=== PATIENT | female | born 1950 | race Caucasian/White ===

== ENCOUNTER → 2018-09-05 | Outpatient (CLI) | payer MEDICARE, BC ==
[~2018-09-05] MED LIST: ASPIR 8181 MG PO; ATORVASTATIN CA20 MG PO; FENOFIBRATE145 MG PO; FUROSEMIDE40 MG PO; LOSARTAN-HCTZ1 EAC1 PO
--- NOTE | 2018-09-05 14:29 | Diagnostic Imaging Report ---
EXAMINATION: CT scan of the chest with contrast. TECHNIQUE: Spiral CT images of the chest were performed from the lung apices to the level of the adrenal glands without IV or oral contrast material. Coronal and sagittal reformatted images were obtained. Low-dose technique was utilized. COMPARISON: None. CLINICAL HISTORY: Dyspnea with chest pain DISCUSSION: LINES/TUBES: None. LUNGS AND AIRWAYS: Calcified right upper lobe granuloma. Focal right upper lobe groundglass opacity likely scarring (series 3, image 40-52). Minimal left upper lobe scarring. There is also lingular scarring. No pulmonary nodules, masses or consolidation. The airways are normal, without endobronchial lesions. PLEURA: No pneumothorax or pleural effusions. HEART AND MEDIASTINUM: The thyroid gland is normal. The heart and pericardium are within normal limits. Calcification within the aorta. LYMPH NODES: There is no mediastinal, hilar or axillary lymphadenopathy. ABDOMEN: Limited contrast-enhanced views of the upper abdomen show no abnormality within the visualized liver, spleen, pancreas or kidneys. The adrenal glands are normal. BONES AND SOFT TISSUES: No acute bony abnormalities. Mild degenerative spurring of the spine. IMPRESSION: 1. Focal areas of scarring in both lung edge. 2. No pulmonary nodules or masses. 3. No acute thoracic abnormality noted. Signed by: Dr. Refugio Zhu DO on 09/05/2018 2:25 PM
== END ==
LOC: CT 11:47
PROVIDERS: ATTEND Internal Medicine Interventional Cardiology
DX: R06.00 Dyspnea, unspecified (principal); R07.89 Other chest pain; J44.9 Chronic obstructive pulmonary disease, unspecified
CPT/HCPCS: 71250

== ENCOUNTER → 2018-09-06 | Day surgery (SDC) | payer MEDICARE, BC ==
[2018-09-04 15:25] LABS: BASOPHILS # (AUTO) 0.1 (0.0-0.1); BASOPHILS % 1.1 % (0.0-1.0); EOSINOPHILS # (AUTO) 0.2 (0.0-0.4); EOSINOPHILS % 2.7 % (0.0-6.0); HEMATOCRIT 42.2 % (34.2-44.1); HEMOGLOBIN 14.9 g/dL (12.0-16.0); LYMPHOCYTES # (AUTO) 1.4 (1.0-3.2); LYMPHOCYTES % 24.3 % (18.0-39.1); MEAN CORPUSCULAR HEMOGLOBIN 33.3 pg (28-32); MEAN CORPUSCULAR HGB CONC 35.3 g/dL (31-35); MEAN CORPUSCULAR VOLUME 94.2 fL (81-99); MONOCYTES # (AUTO) 0.5 (0.2-0.8); MONOCYTES % 8.5 % (4.4-11.3); NEUTROPHILS # (AUTO) 3.6 (2.1-6.9); NEUTROPHILS % 63.2 % (38.7-80.0); PLATELET COUNT 280 x10e3/uL (140-360); RED BLOOD COUNT 4.48 x10e6/uL (3.6-5.1)
[2018-09-04 15:47] LABS: ALANINE AMINOTRANSFERASE 35 IU/L (0-55); ALBUMIN/GLOBULIN RATIO 1.3 (0.8-2.0); ALKALINE PHOSPHATASE 50 IU/L (40-150); BLOOD UREA NITROGEN 22 mg/dL (7-26); BUN/CREATININE RATIO 24 (6-25); CALCIUM 9.3 mg/dL (8.4-10.2); CARBON DIOXIDE 26 mmol/L (22-29); CHLORIDE 105 mmol/L (98-107); CREATININE, SERUM 0.91 mg/dL (0.57-1.11); EST GLOMERULAR FILTRATION RATE > 60 ML/MIN (60-); GLUCOSE 118 mg/dL (74-118); SODIUM 140 mmol/L (136-145)
[~2018-09-06] VITALS: Ht 161.3 cm; Wt 81.6 kg
[2018-09-06] VITALS (11 sets, daily range): BP systolic 123–167; BP diastolic 66–78
[~2018-09-06] MED LIST changes: +ALPRAZOLAM 0.5 MG TAB ONE; +BENZOCAINE 20% SPR 60 ML CAN ONE; +DIPHENHYDRAMINE HCL 25 MG CAP ONE; +FAMOTIDINE 20 MG/2 ML VIAL IV ONE; +FENTANYL CITRATE/PF 100MCG/2 ML INJ ONE; +HEPARIN SOD/SOD CHLORIDE 2,000 ML ONE; +IOPAMIDOL 370 MG/ML 200 ML INFUS..BTL INJ ONE; +LIDOCAINE HCL 2% LOCAL 20 ML VIAL ONE; +LIDOCAINE HCL 2% LOCAL INJ 5 ML SDV VIAL INJ ONE; +METHYLPREDNISOLONE SOD SUCC 125 MG/2ML VIAL ONE; +MIDAZOLAM HCL 2 MG/2 ML VIAL ONE; +POTASSIUM CHLORIDE 20MEQ/100ML 0 ML ONE; +POTASSIUM CHLORIDE 20MEQ/100ML 100 ML IV ONE; +POTASSIUM CHLORIDE 20MEQ/100ML 100 ML ONE; +PREDNISONE 20 MG TAB PO NR; +PROPOFOL IV EMULSION 10 MG/ML 20 ML VIAL ONE; +SODIUM CHLORIDE 0.9% 1000ML 1,000 ML ONE; +VERAPAMIL HCL 2.5 MG/ML 2 ML VIAL ONE
--- OUTSIDE RECORDS SUMMARY | 2018-09-06 11:35 | XMS REPORT ---
Author [facility] Address Unknown Phone Unavailable Care Team Providers Care Trench Pipe Layer Helper Name Role Phone VISHNU FERNANDES Unavailable Unavailable Payers Payer Name Policy Type Policy Number Effective Date Expiration Date Problems This patient has no known problems. Allergies, Adverse Reactions, Alerts Allergy Name Allergy Type Status Severity Reaction(s) Onset Date Inactive Date Treating Clinician Comments iodine DA Active SV 2012-09-29 00:00:00 Medications This patient has no known medications. Results Test Description Test Time Test Comments Text Results Atomic Results Result Comments CT CHEST WO 2018-09-05 14:15:00 [place] [address] Patient Name: KAYLA VARGAS MR #: [id number] : 1950 Age/Sex: 68/F Req #: [id number] Adm Physician: Ordered by: VISHNU FERNANDES MD Report #: [id number] Location: CT Room/Bed: Procedure: [id number] CT/CT CHEST WO Exam Date: 09/05/18 Exam Time: 1210 REPORT STATUS: Signed EXAMINATION: CT scan of the chest with contrast. TECHNIQUE: Spiral CT images of the chest were performed from the lung apices to the level of the adrenal glands without IV or oral contrast material. Coronal and sagittal reformatted images were obtained. Low-dose technique was utilized. COMPARISON: None. CLINICAL HISTORY: Dyspnea with chest pain DISCUSSION: LINES/TUBES: None. LUNGS AND AIRWAYS: Calcified right upper lobe granuloma. Focal right upper lobe groundglass opacity likely scarring (series 3, image [id number]). Minimal left upper lobe scarring. There is also lingular scarring. No pulmonary nodules, masses or consolidation. The airways are normal, without endobronchial lesions. PLEURA: No pneumothorax or pleural effusions. HEART AND MEDIASTINUM: The thyroid gland is normal. The heart and pericardium are within normal limits. Calcification within the aorta. LYMPH NODES: There is no mediastinal, hilar or axillary lymphadenopathy. ABDOMEN: Limited contrast-enhanced views of the upper abdomen show no abnormality within the visualized liver, spleen, pancreas or kidneys. The adrenal glands are normal. BONES AND SOFT TISSUES: No acute bony abnormalities. Mild degenerative spurring of the spine. IMPRESSION: 1. Focal areas of scarring in both lung edge. 2. No pulmonary nodules or masses. 3. No acute thoracic abnormality noted. Signed by: Dr. Kyle Zhu DO on 09/05/2018 2:25 PM Dictated By: KYLE ZHU DO 1423 Transcribed By: CHRIS on 09/05/18 1429 COPY TO: VISHNU FERNANDES MD
--- OUTSIDE RECORDS SUMMARY | 2018-09-06 11:35 | XMS REPORT | Summary of Care ---
Author Author [facility] Organization [facility] Address Unknown Phone Unavailable Encounter HQ Encntr_alias(FIN) [id number] Date(s): 10/18/15 - 10/18/15 [facility] [address] [place] [address]- [phone] Discharge Disposition: Home Attending Physician: Lukasz Fleming MD Vital Signs No data available for this section Problem List No data available for this section Allergies, Adverse Reactions, Alerts Substance Reaction Severity Status iodinated radiocontrast Active dyes Medications No data available for this section Results No data available for this section Immunizations No data available for this section Procedures No data available for this section Social History No data available for this section Assessment and Plan No data available for this section
--- OUTSIDE RECORDS SUMMARY | 2018-09-06 11:35 | XMS REPORT | Continuity of Care Document ---
Author Author [facility] Address Unknown Phone Unavailable Problems Problem Status Onset Date Classification Date Reported Comments Source R31.9 NO ORAL Active 07/10/2018 [facility] N20.0 Active 07/09/2018 [facility] Backache Resolved Problem 07/17/2018 [facility] Hypertension Resolved Problem 07/17/2018 [facility] Kidney stone Resolved Problem 07/17/2018 [facility] Other female genital prolapse Resolved Problem 07/17/2018 [facility] Edema, unspecified Resolved Problem 07/17/2018 [facility] Calculus of ureter Resolved Problem 07/17/2018 [facility] UTI (<span ID="[id number]">Confirmed</span>) Resolved Problem 07/17/2018 [facility] CALCULUS OF KIDNEY Active [facility] KUB Active [facility] N20.1 Active [facility] HEMATURIA, UNSPECIFIED Active [facility] Medications Medication Details Route Status Patient Instructions Ordering Provider Order Date Source Allergies, Adverse Reactions, Alerts Substance Category Reaction Severity Reaction type Status Date Reported Comments Source iodinated radiocontrast dyes Assertion Drug allergy Active [facility] iodine Assertion Drug allergy Active [facility] Immunizations Immunization Date Given Site Status Last Updated Comments Source Results Order Name Results Value Reference Range Date Interpretation Comments Source Abdomen AP DX Abdomen AP DX KUB: Small calyceal stones in the inferior pole of the left kidney are unchanged compared to the previous KUB on 10/18/2015. There are no other visible urinary tract calculi. The abdominal gas pattern is normal. There are no acute osseous abnormalities. There is no other significant change. REYNALDO DLAWRENCE-EDILIA 07/09/2018 - - Read by: Luis George MD Dictated Date/time: 07/10/18 06:12 Electronically Signed by: Luis George MD 07/10/18 06:13 FINAL REPORT [facility] Abdomen AP DX Abdomen AP DX Patient Name: KAYLA VARGAS : 1950; Age: 65 years y/o Female MR: [id number] Study: Abdomen AP DX dated 10/18/2015 Clinical Indication: n20.0 renal stone; Comparison: 08/24/2015 3 small calcifications in the right pelvis similar to prior study likely phleboliths. One calcification right mid pelvis on prior study not seen on this study. 2 tiny adjacent calculi in the left inferior kidney. Surgical clips seen in the right upper abdomen. Degenerative changes about the lower lumbar spine. Nonpathologic bowel gas pattern without evidence of bowel obstruction. SL: [id number] 10/18/2015 - - Read by: Rakan Buck MD Dictated Date/time: 10/18/15 15:35 Electronically Signed by: Rakan Buck MD 10/18/15 15:37 FINAL REPORT [facility] Abdomen AP DX Abdomen AP DX Clinical Indication: n20.1 ureteral stone; Comparison: 09/28/2005 FINDINGS: Several punctate calculi overlie the kidneys, particularly in the left renal lower pole. The right kidney is difficult to evaluate secondary to density from the overlying colonic stool. Pelvic phleboliths are noted. Large amount of stool distends the rectum. Bowel gas pattern otherwise normal. SL: [id number] 08/24/2015 - - Read by: Adams Montez MD Dictated Date/time: 08/24/15 16:07 Electronically Signed by: Adams Montez MD 08/24/15 16:10 FINAL REPORT [facility] Vital Signs Vital Sign Value Date Comments Source Encounters Location Location Details Encounter Type Encounter Number Reason For Visit Attending Provider ADM Date DC Date Status Source [facility] Outpatient [id number] Rosy Clem 08/24/2015 08/25/2015 [facility] [id number] Rosy Clem 10/18/2015 10/19/2015 [facility] Out[facility] [id number] Rosy Clem 07/09/2018 07/10/2018 [facility] Outpatient [id number] ROSY CLEM 07/10/2018 [facility] Outpatient [id number] Rosy Clem 07/15/2018 07/16/2018 [facility] Outpatient [id number] ROSY CLEM 07/30/2018 [facility] Outpatient [id number] NURSE VISIT 07/30/2018 [facility] Procedures Procedure Code Date Perfomer Comments Source Cystoscopy [id number] 08/23/2011 [facility]
--- OUTSIDE RECORDS SUMMARY | 2018-09-06 11:35 | XMS REPORT | Summary of Care ---
Author Author [facility] Organization [facility] Address Unknown Phone Unavailable Encounter HQ Andres_heron(FIN) [id number] Date(s): 07/09/18 - 07/09/18 [facility] [address] [place] [address]- [phone] Discharge Disposition: Home or Self Care Attending Physician: Lukasz Fleming MD Admitting Physician: Lukasz Fleming MD Vital Signs No data available for this section Problem List Condition Effective Dates Status Health Status Informant Backache(Confirmed) Resolved Hypertension(Confirm Resolved ed) Kidney Resolved stone(Confirmed) Other female genital Resolved prolapse(Confirmed) Edema, Resolved unspecified(Confirme d) Calculus of Resolved ureter(Confirmed) UTI (urinary tract Resolved infection)(Confirmed ) Allergies, Adverse Reactions, Alerts Substance Reaction Severity Status iodinated radiocontrast Active dyes iodine Active Medications No data available for this section Results No data available for this section Immunizations No data available for this section Procedures Procedure Date Related Diagnosis Body Site Status Cystoscopy 08/23/11 Completed Social History Social History Type Response Smoking Status Never smoker; Exposure to Tobacco Smoke None; Cigarette Smoking Last 365 Days No; Reg Smoking Cessation Counseling No entered on: 07/10/18 Assessment and Plan No data available for this section
--- OUTSIDE RECORDS SUMMARY | 2018-09-06 11:35 | XMS REPORT | Summary of Care ---
Author Author [facility] Organization [facility] Address Unknown Phone Unavailable Encounter HQ Angus(FIN) [id number] Date(s): 07/15/18 - 07/15/18 [facility] [address] [place] [address]- Discharge Disposition: Home or Self Care Attending Physician: Lukasz Fleming MD Referring Physician: Lukasz Fleming MD Vital Signs No [...]
--- OUTSIDE RECORDS SUMMARY | 2018-09-06 11:35 | XMS REPORT | Summary of Care ---
Author Author [facility] Organization [facility] Address Unknown Phone Unavailable Encounter HQ Encntr_alias(FIN) [id number] Date(s): 08/24/15 - 08/24/15 [facility] [address] [place] [address]- Discharge Disposition: Home Attending Physician: Lukasz Fleming [...]
--- NOTE | 2018-09-06 14:40 | NUR ---
1440pm Received from [facility] Report from Nabeel RN s/p [facility] and [facility] Rt TR band approach (12cc balloon)Sleepy but easily aroused.Family a bedside. Spoke to Dr Matta regarding. POC Pt able to discharge after 2hrs recovery and 20 meq KCl infused via iv controller over 2hrs. added at 1600 with high alert check with 2 nurses. Left iv site with s/s infiltration , Respiration shallow and regular 94% on room air. Abdomen soft and non tender. Denies necessity to defecate or urinate. Rt tr band site w/o signs of hematoma or or bleeding. POC with DC instructions given to and copies given to family. Family states Dr Matta gave Rx x2 to fill for home pharmacist.Denies CP or SOB No gross signs of pain , pallor,pressure or dysrhythmia. Aware of importance of f/o care in 2wks ds/rn
--- NOTE | 2018-09-06 16:45 | NUR ---
1645p TR Band titration initiated (13cc in balloon) 1645p(-2c )positive 11cc Rt radial pulse present, No gross issues of pain or pallor,or bleeding. 1700p (-3cc)positive 9cc Rt radial pulse present , No gross issues of pain or pallor ,or bleeding. 1715p (-3cc)positive 6cc Rt radial pulse present, NO gross issues of pain or pallor,or bleeding. 1730p (-3cc)positive 3cc Rt radial pulse present, No gross issues of pain or pallor, or bleeding. 1745p (-3cc) Tr band off site w/o hematoma or swelling.No gross issues with pain or pallor positive radial pulse. Aware of care of rt wrist splint in place extra coban given to pt form home splint use wants to reapply later after am shower. ds/rn
--- NOTE | 2018-09-06 18:00 | NUR ---
1800pm Infusion completed. No signs of infiltration to site. Iv removed and Coban dressing applied TR band titration completed. Site stable w/o signs of hematoma or bleeding. Sterile 2x2 with Tegaderm and Coban dressing to Rt Tr band site. Wrist splint in place to Rt Radial pulse strong and present, Assist with dressing and assisted to toilet. Voided qs and escorted to private car per w/c. Family chuck wagon driver present with POC papers aware of importance of f/o care. So gross signs of pain,pallor,pressure or dysrhythmia. ds/rn
--- NOTE | 2018-09-06 22:34 | Operative Report ---
DATE OF PROCEDURE: 09/06/2018 SURGEON: Fermín Matta MD CARDIAC ORANGE PEEL OPERATOR PROCEDURE NOTE INDICATION: Congestive heart failure. PROCEDURES PERFORMED: 1. Left heart catheterization, selective coronary angiography. 2. Balloon flotation right heart catheterization. 3. Deployment of right wrist TR band. COMPLICATIONS: None. RECOMMENDATIONS: Aggressive current treatment for hypertension. DESCRIPTION OF PROCEDURE: Access obtained of the right radial artery using ultrasound guidance. A 5-Urdu sheath was placed. Access obtained of the right brachial vein using ultrasound guidance. A 7-Urdu sheath was placed. This is balloon flotation [place] catheterization, please see accompanying report, was normal. Pulmonary capillary wedge pressure was 13, mean pulmonary artery pressure 25. Cardiac output was normal. Left heart catheterization demonstrated markedly elevated LV end-diastolic pressure of 26, systemic blood pressure 180/84 despite sedation. Coronary angiography demonstrated minimal coronary artery disease without any critical occlusions or stenosis. No intervention was deemed necessary. Venous sheath removed under manual pressure. Right wrist TR band applied. The patient discharged home same day. MD JOSÉ ANTONIO Mcmahon/MODL /[id number]
== END | disposition home or self-care (01) ==
LOC: CATH LAB 11:32
PROVIDERS: ATTEND Internal Medicine Interventional Cardiology
DX: I25.10 Atherosclerotic heart disease of native coronary artery without angina pectoris (principal); I10 Essential (primary) hypertension; R53.83 Other fatigue; R06.09 Other forms of dyspnea; Z01.812 Encounter for preprocedural laboratory examination; Z79.82 Long term (current) use of aspirin; Z68.31 Body mass index [BMI] 31.0-31.9, adult; Z82.49 Family history of ischemic heart disease and other diseases of the circulatory system
CPT/HCPCS: 36415; 76937; 80053; 85025; 93312; 93320; 93325; 93460; C1766; C1769; C1887; J2001 ×2; J2250; J2704; J2930; J3480; J7030; Q9967